=== PATIENT | female | born 1935 | race African-American/Black ===

== ENCOUNTER 2016-08-16 07:23 | Emergency (ER) | payer MEDICARE, MEDICAID ==
[2016-08-16] MEDS ORDERED: Sterile Water Irrigation 250 ML BOT ONE (07:42)
[2016-08-16] MEDS ORDERED: Lorazepam 1 MG TAB ONE (08:11)
[2016-08-16 11:17] LABS: Blood, Urine Large (Negative); Clarity Cloudy (Clear); Glucose, Urine (Dipstick) Negative (Negative); Leukocyte Small (Negative); Nitrite Negative (Negative); Protein, Urine (Dipstick) > or equal to 300 mg/dL (Neg-Trace)
[2016-08-16 11:19] LABS: Bilirubin Negative (Negative); Icto Negative (Negative)
[2016-08-16 11:21] LABS: Bacteria/HPF 1+ HPF (None Seen); RBC/HPF GREATER THAN 50-TNTC HPF (0-3); Squamous Epithelial 0-3 HPF (0-3)
[2016-08-16 12:41] LABS: #Basophils 0.1 thou/uL (0.0-0.2); #Lymphocytes 1.4 thou/uL (1.20-3.40); #Monocytes 0.4 thou/uL (0.11-0.59); #Neutrophils 3.7 thou/uL (1.40-6.50); %Basophils 1.1 % (0.0-1.0); %Eosinophils 0.2 % (0.0-10.0); %Monocytes 7.2 % (0.0-10.0); %Neutrophils 66.5 % (42.0-75.0); Hemoglobin 14.7 g/dL (12.0-16.0); Mean Corpuscular HGB CONC 31.6 g/dL (32.0-36.0); Mean Corpuscular Hemoglobin 29.2 pg (27.0-31.0); Mean Corpuscular Volume 92.4 fl (81.0-99.0); Mean Platelet Volume 6.3 fL (7.4-10.4); Platelet Count 262 thou/uL (130-400); Red Blood Cell (RBC) Count 5.03 mill/uL (4.20-5.40); White Blood Cell (WBC) Count 5.5 thou/uL (4.8-10.8)
[2016-08-16 12:48] LABS: ALT (SGPT) 52 U/L (0-55); AST (SGOT) 72 U/L (5-34); Albumin 3.4 g/dL (3.4-4.8); Alkaline Phosphatase 78 U/L (40-150); Anion Gap 19 mmol/L (10-20); BUN (Urea Nitrogen) 38 mg/dL (9.8-20.1); Bilirubin, Total 0.8 mg/dL (0.2-1.2); Calc. Creatinine Clearance 0 mL/min (70-130); Calcium 8.8 mg/dL (7.8-10.44); Carbon Dioxide 23 mmol/L (23-31); Chloride 96 mmol/L (98-107); Estimated GFR-MDRD 30; Glucose 151 mg/dL (83-110); Potassium 5.7 mmol/L (3.5-5.1); Protein, Total 6.4 g/dL (5.8-8.1); Sodium 132 mmol/L (136-145)
== END 2016-08-16 13:04 | disposition short-term general hospital (02) ==
LOC: MADERS 07:23
DX: Z46.6 Encounter for fitting and adjustment of urinary device (principal); M19.90 Unspecified osteoarthritis, unspecified site; D64.9 Anemia, unspecified; E11.9 Type 2 diabetes mellitus without complications
CPT/HCPCS: 36415; 51702; 80053; 81003; 81015; 85025; 87077; 87086; 87186; A4353

== ENCOUNTER 2016-09-29 21:21 | Emergency (ER) | payer MEDICARE, MEDICAID ==
--- NOTE | 2016-09-29 22:50 | RAD ---
AP VIEW CHEST 09/29/16 HISTORY: Altered mental status. AP view chest is obtained on 09/29/16. Comparison made to previous exam from 09/11/16. AP view chest demonstrates cardiomegaly. There is suboptimal visualization of the left hemidiaphragm possibly due to the cardiomegaly. A left sided pleural effusion; however, cannot be definitively ex cluded. Correlate with PA and lateral views of the chest to better evaluate the left lung base. No o ther significant interval changes seen. IMPRESSION: Cardiomegaly. POS: ELISE
--- NOTE | 2016-09-29 22:54 | CT ---
CT BRAIN 09/29/16 HISTORY: 81-year-old with history of altered mental status. Noncontrast enhanced CT images of the brain obtained. Images demonstrate cortical atrophy and deep white matter ischemic changes. No evidence of acute int racranial masses or lesions seen. IMPRESSION: Cortical atrophy. No acute intracranial pathology seen. POS: SHANNON
[2016-09-29 23:02] LABS: Bacteria/HPF 4+ HPF (None Seen); Bilirubin Negative (Negative); Blood, Urine Large (Negative); Clarity Cloudy (Clear); Glucose, Urine (Dipstick) Negative (Negative); Leukocyte Large (Negative); Nitrite Positive (Negative); Protein, Urine (Dipstick) > or equal to 300 mg/dL (Neg-Trace); RBC/HPF GREATER THAN 50-TNTC HPF (0-3); Renal Epithelial 0-3 HPF (0-3); Specific Gravity, Urine 1.015 (1.005-1.030); Squamous Epithelial 0-3 HPF (0-3); Transitional Epithelial 0-3 HPF (0-3); Urobilinogen 0.2 mg/dL (0.2-1.0)
[2016-09-29 23:03] LABS: Hyaline Casts/LPF 7-10 HYALINE CAST LPF (0-3 Hyaline); Other Casts/LPF 4-6 MIXED CASTS LPF (0-3 Hyaline)
== END 2016-09-30 00:40 ==
LOC: MADERS 21:21
DX: R41.82 Altered mental status, unspecified (principal); N39.0 Urinary tract infection, site not specified
CPT/HCPCS: 70450; 71010; 81001; 87077; 87086; 87186; 93005; 94760